=== PATIENT | male | born 1965 | race Caucasian/White ===

== ENCOUNTER 2017-07-30 15:21 | Emergency (ER) | payer OTHER ==
[~2017-07-30] VITALS: Ht 195.6 cm; Wt 149.7 kg
--- NOTE | ~2017-07-30 | EKG ---
[address] [address] ELECTROCARDIOGRAM REPORT Name: BARBARA RUIZ Room #: REG SALVADOR Contreras#: [id number] Admission: 07/30/17 Attend Phys: Discharge: Date of : 69 Report #: [id number] THIS REPORT FOR: //name// [facility] ED Test Date: 2017-07-30 Test Time: 15:23:50 Pat Name: BARBARA RUIZ Department: Room: Gender: [employer] Processor: [facility] : 1965 Requested By: Raymond Sofia Order Number: [id number] MD: Zafar Chapman Measurements Intervals [place] Rate: 94 P: 55 PA: 158 QRS: 8 QRSD: 92 T: 28 QT: 353 QTc: 442 Interpretive Statements Sinus rhythm No significant abnormality No previous ECG available for comparison Electronically Signed On 07-30-2017 17:06:52 CDT by Zafar Chapman [email or web address] <ELECTRONICALLY SIGNED> By: Zafar Chapman MD, [facility] 07/30/17 1706 1523 1523 Zafar Chapman MD, FACC /EPI
[2017-07-30 16:01] LABS: ABSOLUTE NEUTROPHILS 4.4 thou/uL (1.4-8.2); BASOPHILS 0.8 % (0.0-2.0); EOSINOPHILS 1.7 % (0.0-3.0); HEMATOCRIT 45.1 % (37.0-47.0); MCH 31.5 pg (26.0-34.0); MCHC 35.4 g/dL (28.0-37.0); MCV 89.1 fL (80.0-100.0); MONOCYTES 7.6 % (1.0-8.0); PLATELET COUNT 164 thou/uL (150-400); POLYS 55.9 % (36.0-66.0); RBC 5.06 mil/uL (4.20-5.00); RDW 12.9 % (10.5-14.5)
[2017-07-30 16:10] LABS: ANION GAP 9 mmol/L (7-16); BUN 17 mg/dL (7-18); CALCIUM 9.4 mg/dL (8.5-10.1); CHLORIDE 100 mmol/L (98-107); CO2 29 mmol/L (21-32); GLUCOSE 329 mg/dL (74-106); SODIUM 138 mmol/L (136-145)
[2017-07-30 16:39] LABS: ALBUMIN 4.1 g/dL (3.4-5.0); TOTAL PROTEIN 7.5 g/dL (6.4-8.2); TROPONIN-I < 0.04 ng/mL (<0.06)
[2017-07-30 16:40] LABS: SGPT 52 U/L (30-65)
[2017-07-30 16:49] LABS: SGOT 34 U/L (15-37)
[2017-07-30] MEDS ORDERED: LOTEMAX3.5 GM OPHTHALMIC (16:53)
[2017-07-30] MEDS ORDERED: METFORMIN HCL500 MG (16:53)
[2017-07-30] MEDS ORDERED: FISH OIL 1,001000 M2 (16:53)
[2017-07-30] MEDS ORDERED: RESTASIS1 EACH OPHTHALMIC (16:54)
== END 2017-07-30 18:54 | disposition home or self-care (01) ==
LOC: EDSEX 15:21 → ER 15:21
PROVIDERS: Emergency Medicine
DX: R07.89 Other chest pain (principal); I10 Essential (primary) hypertension; E11.9 Type 2 diabetes mellitus without complications